=== PATIENT | male | born 1980 | race Caucasian/White ===

== ENCOUNTER 2023-01-26 21:12 | Emergency (ER) | payer OTHER, SELFPAY ==
--- NOTE | ~2023-01-26 | XR_ITS ---
EXAMINATION: XR CHEST CLINICAL INFORMATION: Pain COMPARISON: None available. TECHNIQUE: Frontal view of the chest was obtained. FINDINGS: No significant abnormality is noted involving the heart, lungs, mediastinum, bony thorax or soft tissues. XR/XR chest 1V IMPRESSION: Unremarkable examination.
--- NOTE | ~2023-01-26 | CT_ITS ---
EXAMINATION: CT CHEST WITHOUT CONTRAST CLINICAL INFORMATION: Rib pain COMPARISON: Chest radiograph 01/26/2023 TECHNIQUE: Multidetector volumetric CT imaging of the chest was done. Axial MIP volume rendering provided. Sagittal and coronal reformatted images were obtained. This CT examination was performed using dose optimization techniques as appropriate, variously including the following: *Automated exposure control *Adjustment of mA and/or kV according to patient size (this includes techniques or standardized protocols for targeted exams where dose is matched to indication/reason for exam; i.e. extremities or head) *Use of iterative reconstruction technique DLP: 438 mGy-cm FINDINGS: CHEST WALL/AXILLA: No axillary lymphadenopathy. LUNGS: Moderate diffuse bronchial wall thickening suggesting airways inflammation. Patchy focal groundglass, consolidation and tree-in-bud nodules as notably in the bilateral lower lobes. A 1.2 cm part solid right lower lobe pulmonary nodule with a 6 mm solid component, 10:382 Scattered distal endobronchial filling defects suggesting mucus impaction for example in the right middle lobe, 10:360. Few scattered solid pulmonary nodules for example a micronodule in the right upper lobe, 10:159 and a 4 mm solid right middle lobe pulmonary nodule, 10:286. MEDIASTINUM: Heart is normal in size. No mediastinal lymphadenopathy. Lack of intravenous contrast limits evaluation for hilar adenopathy though no bulky hilar adenopathy is appreciated. CORONARY ARTERY CALCIFICATION: Coronary artery calcification is present. PLEURA: There is no pleural effusion. UPPER ABDOMEN: Hypoattenuating hepatic parenchyma compatible with hepatic steatosis. Cholelithiasis without evidence of acute cholecystitis. OSSEOUS STRUCTURES: No acute fracture or dislocation. CT/CT chest wo IV con IMPRESSION: Moderate diffuse bronchial wall thickening with patchy foci of groundglass and tree-in-bud nodules most notably in the lower lobe suspicious for airways infection or aspiration with scattered distal endobronchial filling defects suggesting inspissated secretions. There is a more discrete appearing part solid left lower lobe pulmonary nodule measuring 1.2 cm with a 6 mm solid component, which although favored to be infectious or inflammatory recommend Fleischner Society follow-up. According to the UPDATED 2017 Fleischner Society recommendations, the advised followup imaging for a single part solid nodule measuring 6 mm or greater is: CT at 3-6 months to confirm persistence. If unchanged and solid component remains <6 mm, annual CT should be performed for 5 years. No acute fracture or dislocation. Few additional sub-5 mm solid pulmonary nodules. Assuming patient has no history of malignancy, recommend follow-up per Fleischner Society recommendations. According to the UPDATED 2017 Fleischner Society recommendations, the advised followup imaging for solid nodules < 6 mm is: LOW RISK PATIENT: No routine follow up. HIGH RISK PATIENT: Optional CT at 12 months. Hepatic steatosis. Cholelithiasis without evidence of acute cholecystitis. The findings and recommendations were discussed with Dr. Chapman by telephone at 01/27/2023 12:23 AM and it was ascertained that the content and urgency of the report was understood at the time of direct communication.
[2023-01-26 21:16] VITALS: BP 151/105; PULSE 114; RESP 20; TEMP 36.9; O2SAT 95; BMI 32.9
[2023-01-26 21:37] LABS: MANUAL DIFF FLAG NO
[2023-01-26 21:39] LABS: Basophils Percent Auto 0.4 % (0-2); Eosinophils Absolute Auto 0.5 X10*3/uL (0.0-0.4); Eosinophils Percent Auto 6.4 % (0-4); Hematocrit 37.7 % (42.0-52.0); Hemoglobin 12.6 g/dl (14.0-18.0); Imm Gran Abs Auto 0.03 X10*3/uL (0.00-0.03); Imm Gran Pct Auto 0.4 % (0.0-0.4); Lymphocytes Absolute Auto 2.3 X10*3/uL (1.2-4.9); Lymphocytes Percent Auto 28.9 % (20-40); Mean Corpuscular HGB Conc 33.4 g/dl (31.0-36.0); Mean Corpuscular Volume 98.7 fL (80.0-98.0); Mean Platelet Volume 9.6 fL (9.4-12.4); Monocytes Absolute Auto 0.5 X10*3/uL (0.1-1.2); Monocytes Percent Auto 6.4 % (2-11); Neutrophils Absolute Auto 4.6 x10*3/uL (2.0-8.3); Neutrophils Percent Auto 57.5 % (45-73); Platelet Count 207 X10*3/uL (160-400); Red Blood Count 3.82 X10*6/uL (4.60-5.80); Red Cell Distribution Width 12.4 % (11.0-16.0)
[2023-01-26 21:58] LABS: COVID-19 Test Negative (Negative); IDNOW Serial# 08D9AD1C; IDNOW Serial# BCCEAD1C; Influenza A Negative (Negative); Influenza B2 Negative (Negative)
[2023-01-26 22:06] LABS: Alanine Aminotransferase 33 U/L (0-40); Albumin Level 4.6 g/dL (3.5-5.0); Alkaline Phosphatase 83 U/L (39-117); Anion Gap 15 (12-20); Aspartate Amino Transferase 16 U/L (5-37); Bilirubin Total 0.5 mg/dL (0.0-1.0); Blood Urea Nitrogen 14 mg/dL (9-16); Calcium 9.1 mg/dL (8.4-10.2); Carbon Dioxide 26 mmol/L (22-29); Chloride 103 mmol/L (96-108); Creatinine Clr Calc Pharmacy 108.8; Estimated Glomerular Filt Rate > 60; Glucose Random 195 mg/dL (60-115); Potassium 4.6 mmol/L (3.3-5.1); Sodium 139 mmol/L (135-145); Total Protein 7.4 g/dL (6.5-8.0)
[2023-01-26 22:16] VITALS: BP 142/96; PULSE 106; RESP 19; TEMP 37; O2SAT 97
--- NOTE | 2023-01-26 22:38 | ED.URI ---
HPI - URI/Sore Throat General Chief Complaint: Back Pain/Injury Stated Complaint: Pain when cough on right side Time Seen by Provider: 01/26/23 22:32 Source: patient Mode of arrival: ambulatory Limitations: no limitations History of Present Illness HPI Narrative: Patient 42 years old smoker with history of diabetes and? ALISA comes here for increased right-sided chest pain in the front after coughing for last few days. Patient has been coughing for last 4 5 days with mucopurulent expectoration temperature of 102.9 degrees yesterday since today morning after coughing patient been noticing pain whenever she takes a deep breath in the right anterior lower chest. No history of asthma no history of COPD on arrival patient's blood pressure was 151/105 pulse rate of 114 saturating 95% at room air patient denies any abdominal pain Related Data Previous Rx's Medication Instructions Recorded cefdinir 300 mg capsule 300 mg PO BID #20 caps 01/27/23 codeine 10 mg-guaifenesin 100 mg/5 10 ml PO Q6H PRN cough #237 mL 01/27/23 mL oral liquid doxycycline hyclate 100 mg tablet 100 mg PO BID #20 tabs 01/27/23 ibuprofen 600 mg tablet 600 mg PO Q6H PRN fever or pain 01/27/23 #30 tabs oxycodone 5 mg tablet 5 mg PO Q6H PRN pain #20 tabs 01/27/23 Allergies Allergy/AdvReac Type Severity Reaction Status Date / Time varenicline [From Chantix] Allergy Nausea Verified 01/26/23 23:05 Review of Systems Review of Systems: Yes all other systems are reviewed and are negative [facility], [facility] Social History Social History Advance Directives: No Advance Directives Information Provided: No Physical Exam Vital Signs: Vital Signs: Last Vital Signs Temp 98.6 F 01/26/23 22:16 Pulse 106 H 01/26/23 22:16 Resp 94 H 01/27/23 00:24 BP 115/71 01/27/23 00:24 Pulse Ox 93 01/27/23 00:24 O2 Del Method Room Air 01/27/23 00:24 BMI result Body Mass Index 32.9 Appearance: Alert. Oriented X3. No acute distress. Eyes: No pallor or icterus ENT: Pharynx normal. Oral Mucosa moist Neck: Normal inspection. Neck supple. CVS: Normal heart rate and rhythm. Pulses normal. Respiratory: No respiratory distress. Equal air entry bilateral, no wheezing/rales/rhonchi tender right front lower ribs no crepitation Abdomen: Soft and nontender. Bowel sounds are present, no mass palpable, no CVA tenderness Skin: Skin warm and dry. Normal skin color. Normal skin turgor. Extremities: No lower extremity edema. No calf tenderness Neuro: Oriented X 3. No motor deficit. Medications Administered Discontinued Medications Generic Name Dose Route Start Last Admin Trade Name Freq PRN Reason Stop Dose Admin Benzonatate 200 mg 01/27/23 00:33 01/27/23 00:51 Benzonatate 100 Mg Capsule PO 01/27/23 00:34 200 mg ONCE ONE Administration Doxycycline Monohydrate 100 mg 01/27/23 00:33 01/27/23 00:51 Doxycycline Monohydrate 100 Mg Capsule PO 01/27/23 00:34 100 mg ONCE ONE Administration Guaifenesin/Codeine Phosphate 10 ml 01/26/23 23:18 01/26/23 23:39 Guaifen/Codeine Sf 200/20/10ml 10 Ml Liquid PO 01/26/23 23:19 10 ml ONCE ONE Administration Ceftriaxone Sodium 1 gm/ 50 mls @ 100 mls/hr 01/26/23 23:07 01/26/23 23:55 Sodium Chloride IV 01/26/23 23:36 Infused ONCE ONE Infusion Ketorolac Tromethamine 30 mg 01/27/23 00:26 01/27/23 00:35 Ketorolac Tromethamine 30 Mg/Ml Vial IVPUSH 01/27/23 00:27 30 mg ONCE ONE Administration Morphine Sulfate 4 mg 01/26/23 23:03 01/26/23 23:08 Morphine Sulfate 4 Mg/Ml Cartridge IVPUSH 01/26/23 23:04 4 mg ONCE ONE Administration Protocol Ondansetron HCl 4 mg 01/26/23 23:03 01/26/23 23:08 Ondansetron Hcl 4 Mg/2 Ml Vial IVPUSH 01/26/23 23:04 4 mg ONCE ONE Administration Medical Decision Making Medical Decision Making MDM Narrative: Patient's CT chest negative for rib fracture showed ground-glass opacities with secretions questionable left lower lobe nodule 1.2 cm could be infectious. Will give patient Rocephin IV in the ER and discharge patient home on cefdinir and doxycycline for follow-up as out patient Lab Data MDM Lab Attestation statement: I reviewed the patient's lab results. 01/26/23 21:26 01/26/23 21:26 Labs: Lab Results 01/26/23 01/26/23 01/26/23 Range/Units 21:26 21:26 21:28 WBC 8.0 (4.8-10.8) X10*3/uL RBC 3.82 L (4.60-5.80) X10*6/uL Hgb 12.6 L (14.0-18.0) g/dl Hct 37.7 L (42.0-52.0) % MCV 98.7 H (80.0-98.0) fL MCH 33.0 (27.0-33.0) pg MCHC 33.4 (31.0-36.0) g/dl RDW 12.4 (11.0-16.0) % Plt Count 207 (160-400) X10*3/uL MPV 9.6 (9.4-12.4) fL Immature Gran % (Auto) 0.4 (0.0-0.4) % Neut % (Auto) 57.5 (45-73) % Lymph % (Auto) 28.9 (20-40) % [place] % (Auto) 6.4 (2-11) % Eos % (Auto) 6.4 H (0-4) % Baso % (Auto) 0.4 (0-2) % Lymph # (Auto) 2.3 (1.2-4.9) X10*3/uL [place] # (Auto) 0.5 (0.1-1.2) X10*3/uL Eos # (Auto) 0.5 H (0.0-0.4) X10*3/uL Baso # (Auto) 0.0 (0.0-0.2) X10*3/uL Abs Immat Gran (auto) 0.03 (0.00-0.03) X10*3/uL Absolute Neuts (auto) 4.6 (2.0-8.3) x10*3/uL Absolute Nucleated RBC 0.000 (0.0-0.012) X10*3/uL Nucleated RBC % (auto) 0.0 (0.0-0.2) /100WBC Sodium 139 (135-145) mmol/L Potassium 4.6 (3.3-5.1) mmol/L Chloride 103 (96-108) mmol/L Carbon Dioxide 26 (22-29) mmol/L Anion Gap 15 (12-20) BUN 14 (9-16) mg/dL Creatinine 1.11 (0.5-1.4) mg/dL Estim Creat Clear Calc 108.8 Estimated GFR > 60 Random Glucose 195 H (60-115) mg/dL Calcium 9.1 (8.4-10.2) mg/dL Total Bilirubin 0.5 (0.0-1.0) mg/dL AST 16 (5-37) U/L ALT 33 (0-40) U/L Alkaline Phosphatase 83 (39-117) U/L Total Protein 7.4 (6.5-8.0) g/dL Albumin 4.6 (3.5-5.0) g/dL COVID-19 (LIBAN) (Negative) COVID-19 Clin Com Influenza Type A (BRONWYN) Negative (Negative) Influenza Type B (BRONWYN) Negative (Negative) Influenza A & B Note See Note 01/26/23 Range/Units 21:28 WBC (4.8-10.8) X10*3/uL RBC (4.60-5.80) X10*6/uL Hgb (14.0-18.0) g/dl Hct (42.0-52.0) % MCV (80.0-98.0) fL MCH (27.0-33.0) pg MCHC (31.0-36.0) g/dl RDW (11.0-16.0) % Plt Count (160-400) X10*3/uL MPV (9.4-12.4) fL Immature Gran % (Auto) (0.0-0.4) % Neut % (Auto) (45-73) % Lymph % (Auto) (20-40) % [place] % (Auto) (2-11) % Eos % (Auto) (0-4) % Baso % (Auto) (0-2) % Lymph # (Auto) (1.2-4.9) X10*3/uL [place] # (Auto) (0.1-1.2) X10*3/uL Eos # (Auto) (0.0-0.4) X10*3/uL Baso # (Auto) (0.0-0.2) X10*3/uL Abs Immat Gran (auto) (0.00-0.03) X10*3/uL Absolute Neuts (auto) (2.0-8.3) x10*3/uL Absolute Nucleated RBC (0.0-0.012) X10*3/uL Nucleated RBC % (auto) (0.0-0.2) /100WBC Sodium (135-145) mmol/L Potassium (3.3-5.1) mmol/L Chloride (96-108) mmol/L Carbon Dioxide (22-29) mmol/L Anion Gap (12-20) BUN (9-16) mg/dL Creatinine (0.5-1.4) mg/dL Estim Creat Clear Calc Estimated GFR Random Glucose (60-115) mg/dL Calcium (8.4-10.2) mg/dL Total Bilirubin (0.0-1.0) mg/dL AST (5-37) U/L ALT (0-40) U/L Alkaline Phosphatase (39-117) U/L Total Protein (6.5-8.0) g/dL Albumin (3.5-5.0) g/dL COVID-19 (LIBAN) Negative (Negative) COVID-19 Clin Com See Note Influenza Type A (BRONWYN) (Negative) Influenza Type B (BRONWYN) (Negative) Influenza A & B Note Radiology Impression Discussion of test interpretation with radiology: I have reviewed the radiologist's reading. Radiologist Impression: RDER #: [id number] CT/CT chest wo IV con IMPRESSION: ? Moderate diffuse bronchial wall thickening with patchy foci of groundglass and tree-in-bud nodules most notably in the lower lobe suspicious for airways infection or aspiration with scattered distal endobronchial filling defects suggesting inspissated secretions. There is a more discrete appearing part solid left lower lobe pulmonary nodule measuring 1.2 cm with a 6 mm solid component, which although favored to be infectious or inflammatory recommend Fleischner Society follow-up. According to the UPDATED 2017 Fleischner Society recommendations, the advised followup imaging for a single part solid nodule measuring 6 mm or greater is: CT at 3-6 months to confirm persistence. If unchanged and solid component remains <6 mm, annual CT should be performed for 5 years. ? No acute fracture or dislocation. ? Few additional sub-5 mm solid pulmonary nodules. Assuming patient has no history of malignancy, recommend follow-up per Fleischner Society recommendations. According to the UPDATED 2017 Fleischner Society recommendations, the advised followup imaging for solid nodules < 6 mm is: ?? LOW RISK PATIENT: No routine follow up. ?? HIGH RISK PATIENT: Optional CT at 12 months. ? Hepatic steatosis. ? Cholelithiasis without evidence of acute cholecystitis. ? The findings and recommendations were discussed with? Dr. Chapman by telephone at 01/27/2023 12:23 AM and it was ascertained that the content and urgency of the report was understood at the time of direct communication. ? ? Dictated By: Julieta Hernandez MD Signed By: <Electronically signed by Julieta Hernandez MD in OV> 01/27/23 0024 Discharge Plan Discharge Clinical Impression: Acute tracheobronchitis, Contusion of rib on right side Patient Disposition: Home, Self-Care Instructions: Acute Bronchitis (ED), Rib Contusion (ED) Additional Instructions: Take antibiotics and pain medication cough syrup as prescribed Follow-up with your PCP as advised Prescriptions: New cefdinir 300 mg capsule 300 mg PO BID Qty: 20 0RF codeine-guaifenesin 10-100 mg/5 mL liquid 10 ml PO Q6H PRN (Reason: cough) Qty: 237 0RF doxycycline hyclate 100 mg tablet 100 mg PO BID Qty: 20 0RF oxycodone 5 mg tablet 5 mg PO Q6H PRN (Reason: pain) Qty: 20 0RF Rx Instructions: Partial Fill upon patient request. ibuprofen 600 mg tablet 600 mg PO Q6H PRN (Reason: fever or pain) Qty: 30 0RF Stand Alone Forms: Work/School Release Interventions: ED Discharge Assessment Last Done: 01/27/23 00:57 Discharge Date/Time: 01/27/23 00:58
[2023-01-26] MEDS: ondansetron HCL 4 MG/2 ML VIAL IVPUSH (23:08)
[2023-01-26] MEDS: Morphine Sulfate 4 MG/ML CARTRIDGE IVPUSH (23:08)
[2023-01-26] MEDS: cefTRIAXone sodium 1 GM in 0.9 % Sodium Chloride 50 ML IV (23:18)
[2023-01-26] MEDS: guaiFEN/Codeine SF 200/20/10ML 10 ML LIQUID PO (23:39)
[2023-01-27 00:24] VITALS: BP 115/71; RESP 94; O2SAT 93
[2023-01-27] MEDS: Ketorolac Tromethamine 30 MG/ML VIAL IVPUSH (00:35)
[2023-01-27] MEDS: Benzonatate 100 MG CAPSULE 200 MG PO (00:51)
[2023-01-27] MEDS: Doxycycline Monohydrate 100 MG CAPSULE PO (00:51)
== END 2023-01-27 00:58 | disposition home or self-care (01) ==
PROVIDERS: Emergency Provider Internal Medicine
DX: J40 Bronchitis, not specified as acute or chronic (principal); M54.50 Low back pain, unspecified; M54.6 Pain in thoracic spine; R05.9 Cough, unspecified; R07.81 Pleurodynia; G47.33 Obstructive sleep apnea (adult) (pediatric); Z20.822 Contact with and (suspected) exposure to COVID-19; Z20.828 Contact with and (suspected) exposure to other viral communicable diseases; Z79.899 Other long term (current) drug therapy
CPT/HCPCS: 71045; 71250; 80053; 85025; 87502; 87635; 96365; 96375; 99283; 99284; J0696; J1885; J2270; J2405

== ENCOUNTER 2024-08-19 16:14 | Emergency (ER) | payer OTHER, SELFPAY ==
--- NOTE | ~2024-08-19 | XR_ITS ---
EXAMINATION: XR CHEST CLINICAL INFORMATION: Chest pain, shortness of breath COMPARISON: Chest CT on 12/30/2022 TECHNIQUE: 2 views of the chest were obtained. FINDINGS: No significant abnormality is noted involving the heart, lungs, mediastinum, bony thorax or soft tissues. XR/XR chest 2V IMPRESSION: Unremarkable examination. Electronically signed by: Monae Adrian MD 08/19/2024 06:29 PM EDT RP
--- NOTE | 2024-08-19 16:17 | ECG_ITS ---
Test Reason : chest pain Blood Pressure : / mmHG Vent. Rate : 088 BPM Atrial Rate : 088 BPM P-R Int : 190 ms QRS Dur : 080 ms QT Int : 332 ms P-R-T Axes : 061 042 042 degrees QTc Int : 401 ms Normal sinus rhythm Normal ECG No previous ECGs available Referred By: Shannon Young Electronically Signed By:All Martínez
[2024-08-19 16:23] VITALS: BP 150/80; PULSE 95; RESP 18; TEMP 36.9; O2SAT 98; BMI 32.0
--- NOTE | 2024-08-19 16:24 | ED_ITS ---
HPI - General Adult General Chief complaint: Chest Pain Stated complaint: chest tightness sent from Time Seen by Provider: 08/20/24 01:02 Source: patient Mode of arrival: ambulatory Limitations: no limitations History of Present Illness ED Provider: luis WILLARD narrative: Patient's history of COPD/sleep apnea not using CPAP machine noticed 2 days ago chest heaviness during daytime with shortness a breath improved for last 24 hours no chest pain no heaviness no shortness a breath patient came here to rechecked no known cardiac history Related Data Previous Rx's ?Medication ?Instructions ?Recorded cefdinir 300 mg capsule 300 mg PO BID #20 caps 01/27/23 codeine 10 mg-guaifenesin 100 mg/5 10 ml PO Q6H PRN cough #237 mL 01/27/23 mL oral liquid doxycycline hyclate 100 mg tablet 100 mg PO BID #20 tabs 01/27/23 ibuprofen 600 mg tablet 600 mg PO Q6H PRN fever or pain 01/27/23 #30 tabs oxycodone 5 mg tablet 5 mg PO Q6H PRN pain #20 tabs 01/27/23 Allergies Allergy/AdvReac Type Severity Reaction Status Date / Time varenicline [From Chantix] Allergy Nausea Verified 08/19/24 16:25 Review of Systems 2 Review of Systems: Yes all other systems are reviewed and are negative [facility] Social History Social History Smoked in Last 30 Days: Yes Use of substances other than those prescribed or required for medical reasons: No Advance Directives: No Advance Directives Information Provided: Yes Do you have a plan to hurt others: No Plan Physical Exam ED Vital Signs: Vital Signs - 24 hr 08/19/24 16:23 08/19/24 23:31 Temperature 98.5 F 98.6 F Pulse Rate 95 88 Respiratory Rate 18 16 Blood Pressure 150/80 H 153/91 H Pulse Oximetry 98 96 Oxygen Delivery Method Room Air Room Air BMI result Body Mass Index 32.0 Appearance: Alert. Oriented X3. No acute distress. Eyes: PERRLA, No Nystagmus ENT: Pharynx normal. Oral Mucosa moist Neck: Normal inspection. Neck supple. CVS: Normal heart rate and rhythm. Pulses normal. Respiratory: No respiratory distress. Equal air entry bilateral, no wheezing/rales/rhonchi Abdomen: Soft and nontender. Bowel sounds are present, no mass palpable, no CVA tenderness Skin: Skin warm and dry. Normal skin color. Normal skin turgor. Extremities: No lower extremity edema. No calf tenderness Neuro: Oriented X 3. No motor deficit. No sensory deficit.No cerebellar signs , cranial nerves II-XII intact Course Course Course Narrative: RME performed by Shannon Young PA-C. Patient is a 43 year old assigned male at presenting to the emergency department with chest tightness and shortness of breath. Patient states that over the last day he has been having shortness of breath and chest tightness. Detailed physical exam and review of systems are deferred to the intake clinician. EKG, labs, imaging, and swabs ordered. Patient placed back in the waiting room pending room availability and results. 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 08/19/24 16:34 08/19/24 16:34 Labs: Lab Results 08/19/24 08/19/24 Range/Units 16:34 19:15 WBC 7.5 (4.8-10.8) X10*3/uL RBC 4.10 L (4.60-5.80) X10*6/uL Hgb 13.8 L (14.0-18.0) g/dl Hct 40.3 L (42.0-52.0) % MCV 98.3 H (80.0-98.0) fL MCH 33.7 H (27.0-33.0) pg MCHC 34.2 (31.0-36.0) g/dl RDW 12.0 (11.0-16.0) % Plt Count 220 (160-400) X10*3/uL MPV 9.3 L (9.4-12.4) fL Immature Gran % (Auto) 0.4 (0.0-0.4) % Neut % (Auto) 53.6 (45-73) % Lymph % (Auto) 33.6 (20-40) % [place] % (Auto) 6.7 (2-11) % Eos % (Auto) 4.9 H (0-4) % Baso % (Auto) 0.8 (0-2) % Lymph # (Auto) 2.5 (1.2-4.9) X10*3/uL [place] # (Auto) 0.5 (0.1-1.2) X10*3/uL Eos # (Auto) 0.4 (0.0-0.4) X10*3/uL Baso # (Auto) 0.1 (0.0-0.2) X10*3/uL Abs Immat Gran (auto) 0.03 (0.00-0.03) X10*3/uL Absolute Neuts (auto) 4.0 (2.0-8.3) x10*3/uL Absolute Nucleated RBC 0.030 H (0.0-0.012) X10*3/uL Nucleated RBC % (auto) 0.4 H (0.0-0.2) /100WBC Sodium 136 (135-145) mmol/L Potassium 4.6 (3.3-5.1) mmol/L Chloride 101 (96-108) mmol/L Carbon Dioxide 26 (22-29) mmol/L Anion Gap 14 (12-20) BUN 11 (9-16) mg/dL Creatinine 1.04 (0.5-1.4) mg/dL Estim Creat Clear Calc 113.3 Estimated GFR > 60 Random Glucose 203 H (60-115) mg/dL Calcium 10.1 D (8.4-10.2) mg/dL Magnesium 1.7 (1.6-2.6) mg/dL Total Bilirubin 0.4 (0.0-1.0) mg/dL AST 23 (5-37) U/L ALT 44 H (0-40) U/L Alkaline Phosphatase 92 (39-117) U/L Troponin I High Sens 21.3 24.0 (<3.5-35.0) ng/L Total Protein 7.4 (6.5-8.0) g/dL Albumin 4.5 (3.5-5.0) g/dL Influenza Type A (PCR) NEGATIVE (Negative) Influenza Type B (PCR) NEGATIVE (Negative) RSV RNA Qual (PCR) NEGATIVE (Negative) SARS-CoV-2 RNA (RT-PCR) NEGATIVE (Negative) Independent Interpretation I performed an independent interpretation of an: EKG Interpretation: Normal sinus rhythm heart rate 88 beats per minute normal intervals normal axis no acute ST-T changes no acute ischemia Discharge Plan Discharge Clinical Impression: Chest pain Patient Disposition: Home, Self-Care Instructions: Chest Pain (ED) Additional Instructions: At this time there is no evidence of cardiac injury/significant cardiac disease You need further evaluation including stress test Start using your CPAP machine for sleep apnea Report to ER if recurrence of the pain Prescriptions: No Action cefdinir 300 mg capsule 300 mg PO BID Qty: 20 0RF codeine-guaifenesin 10-100 mg/5 mL liquid 10 ml PO Q6H PRN (Reason: cough) Qty: 237 0RF doxycycline hyclate 100 mg tablet 100 mg PO BID Qty: 20 0RF oxycodone 5 mg tablet 5 mg PO Q6H PRN (Reason: pain) Qty: 20 0RF Rx Instructions: Partial Fill upon patient request. ibuprofen 600 mg tablet 600 mg PO Q6H PRN (Reason: fever or pain) Qty: 30 0RF Print Language: Cypriot
[2024-08-19 16:44] LABS: MANUAL DIFF FLAG NO
[2024-08-19 16:46] LABS: Basophils Absolute Auto 0.1 X10*3/uL (0.0-0.2); Basophils Percent Auto 0.8 % (0-2); Eosinophils Absolute Auto 0.4 X10*3/uL (0.0-0.4); Eosinophils Percent Auto 4.9 % (0-4); Hematocrit 40.3 % (42.0-52.0); Hemoglobin 13.8 g/dl (14.0-18.0); Imm Gran Abs Auto 0.03 X10*3/uL (0.00-0.03); Imm Gran Pct Auto 0.4 % (0.0-0.4); Lymphocytes Absolute Auto 2.5 X10*3/uL (1.2-4.9); Lymphocytes Percent Auto 33.6 % (20-40); Mean Corpuscular HGB Conc 34.2 g/dl (31.0-36.0); Mean Corpuscular Hemoglobin 33.7 pg (27.0-33.0); Mean Corpuscular Volume 98.3 fL (80.0-98.0); Mean Platelet Volume 9.3 fL (9.4-12.4); Monocytes Absolute Auto 0.5 X10*3/uL (0.1-1.2); Monocytes Percent Auto 6.7 % (2-11); NRBC Pct Auto 0.4 /100WBC (0.0-0.2); Neutrophils Percent Auto 53.6 % (45-73); Platelet Count 220 X10*3/uL (160-400); White Blood Count 7.5 X10*3/uL (4.8-10.8)
[2024-08-19 17:07] LABS: Alanine Aminotransferase 44 U/L (0-40); Albumin Level 4.5 g/dL (3.5-5.0); Alkaline Phosphatase 92 U/L (39-117); Anion Gap 14 (12-20); Aspartate Amino Transferase 23 U/L (5-37); Bilirubin Total 0.4 mg/dL (0.0-1.0); Blood Urea Nitrogen 11 mg/dL (9-16); Calcium 10.1 mg/dL (8.4-10.2); Carbon Dioxide 26 mmol/L (22-29); Chloride 101 mmol/L (96-108); Creatinine Clr Calc Pharmacy 113.3; Estimated Glomerular Filt Rate > 60; Glucose Random 203 mg/dL (60-115); Magnesium 1.7 mg/dL (1.6-2.6); Potassium 4.6 mmol/L (3.3-5.1); Sodium 136 mmol/L (135-145); Total Protein 7.4 g/dL (6.5-8.0)
[2024-08-19 17:15] LABS: Troponin-I High Sensitivity 21.3 ng/L (<3.5-35.0)
[2024-08-19 17:31] LABS: Influenza A PCR NEGATIVE (Negative); Influenza B PCR NEGATIVE (Negative); Resp Syncy Virus RNA Qual PCR NEGATIVE (Negative); SARS COV2 PCR INHOUSE NEGATIVE (Negative)
[2024-08-19 23:28] VITALS: PULSE 89
[2024-08-19 23:31] VITALS: BP 153/91; PULSE 88; RESP 16; TEMP 37; O2SAT 96
[2024-08-20 02:09] VITALS: BP 139/74; PULSE 88; RESP 16; TEMP 37; O2SAT 96
== END 2024-08-20 02:10 | disposition home or self-care (01) ==
PROVIDERS: Physician Assistant Medical; Emergency Provider Internal Medicine; PCP Internal Medicine
DX: R07.9 Chest pain, unspecified (principal); R06.02 Shortness of breath; J44.9 Chronic obstructive pulmonary disease, unspecified; Z03.818 Encounter for observation for suspected exposure to other biological agents ruled out
CPT/HCPCS: 0241U; 36415; 71046; 80053; 83735; 84484; 85025; 93005; 99283; 99285

== ENCOUNTER → 2024-08-19 16:17 | Outpatient (BNV) | payer OTHER, SELFPAY | PROVIDERS: Emergency Provider Internal Medicine; PCP Internal Medicine; Visit Provider Internal Medicine Cardiovascular Disease | DX: R07.9 Chest pain, unspecified (principal) | CPT/HCPCS: 93010 ==